=== PATIENT | female | born 1980 ===

== ENCOUNTER 2017-12-29 12:12 | Inpatient (IN) | payer OTHER ==
[~2017-12-29] VITALS: Ht 165.1 cm; Wt 3.6 kg
[2017-12-29] MEDS ORDERED: PRENATAL FORMU1 EAC1 PO (15:57)
[2018-01-01] MEDS ORDERED: PERCOCET 5-3251 EACH PO (18:41)
[2018-01-01] MEDS ORDERED: SURFAK240 M1 PO (18:41)
== END 2018-01-02 13:05 | DRG 785 ==
LOC: OB/GYN 12:12 → LDR 12:12 → OB/GYN 17:12
PROVIDERS: Specialist
PROC: 0UB70ZZ Excision of Bilateral Fallopian Tubes, Open Approach (ICD-10-PCS; 2017-12-29)
PROC: 4A1HXCZ Monitoring of Products of Conception, Cardiac Rate, External Approach (ICD-10-PCS; 2017-12-29)
PROC: 4A033R1 Measurement of Arterial Saturation, Peripheral, Percutaneous Approach (ICD-10-PCS; 2017-12-29)
PROC: 10D00Z1 Extraction of Products of Conception, Low, Open Approach (ICD-10-PCS; principal; 2017-12-29 12:00)
DX: O34.211 Maternal care for low transverse scar from previous cesarean delivery (principal); O75.82 Onset (spontaneous) of labor after 37 completed weeks of gestation but before 39 completed weeks gestation, with delivery by (planned) cesarean section; Z3A.39 39 weeks gestation of pregnancy; Z37.0 Single live birth; Z30.2 Encounter for sterilization